=== PATIENT | male | born 1990 | race Caucasian/White ===

== ENCOUNTER → 2019-02-21 | Outpatient (CLI) | payer BC ==
--- NOTE | 2019-02-21 11:40 | PCVCIMAG ---
APPROVED REPORT Study performed: 02/21/2019 10:09:25 Exam: Stress Echocardiogram Indication: Chest pain, htn, palpitations Patient Location: Echo lab Stress Nurse: Kristin Huizar RN Status: routine Ht: 6 ft 2 in HR: 115 bpm BP: 134/84 mmHg Rhythm: Tachycardia Procedure The patient underwent an Exercise Stress Test using the Charles Protocol. Blood pressure, heart rate, and EKG were monitored. An Echocardiogram was performed by industrial electrical technician in four stages in quad fashion. At peak stress, four selected images were obtained and placed side by side with resting images for comparison. Stress Test Details Stress Test: Exercise stress testing was performed using a Charles protocol. HR Resting HR: 115 bpmMax Heart Rate (APMHR): 194 bpm Max HR Achieved: 184 bpmTarget HR (85% APMHR): 164 bpm % of APMHR: 94 Recovery HR: 123 bpm HR response to stress: Normal HR response to stress BP Resting BP: 134/84 mmHg Max BP: 186/80 mmHg Recovery BP: 124/84 mmHg BP response to stress: Normal blood pressure response to stress. ECG Resting ECG: Sinus Rhythm Stress ECG: Sinus Rhythm ST Change: Normal Arrhythmia: None Recovery ECG: Sinus Rhythm Recovery ST Change: Normal Recovery Arrhythmia: isolated PVCs that resolved Clinical Reason for Termination: Maximal effort, Dyspnea Stress Symptoms: Dyspnea Exercise duration: 11 min 3 sec Highest Stage Achieved: Stage 4: 4.2 mph at 16% grade. Exercise capacity: 13.7 METs Overall Exercise Capacity for Age: Normal Scale: Active Angina Score: None Stress ECG Conclusion 1. Subjectively negative for ischemia 2. Elective cartographic a negative for ischemia 2. Satisfactory functional capacity Pre-Stress Echo The resting Echocardiogram showed normal left ventricular contractility with an estimated Ejection Fraction of about >55%. Normal wall motion in all segments on baseline images. Post-Stress Echo The stress Echocardiogram showed normal left ventricular contractility with an estimated Ejection Fraction of about 65%. Normal augmentation of wall motion in all segments on post stress images. Clinical No clinical or ECG evidence for ischemia. Conclusion Clinical Response: Non-ischemic Exercise Capacity: Average Stress ECG Response: Non-ischemic Stress Echo Images: Non-ischemic The left ventricle is normal in size and wall thickness in both the rest and stress images. 1. Low risk study Other Information Study Quality: Adequate <Conclusion> The left ventricle is normal in size and wall thickness in both the rest and stress images. 1. Low risk study
== END | disposition home or self-care (01) ==
LOC: PCVCIMAG 09:52
PROVIDERS: ATTEND Internal Medicine
DX: R00.2 Palpitations (principal); I10 Essential (primary) hypertension; R07.9 Chest pain, unspecified
CPT/HCPCS: 93325; 93351